=== PATIENT | male | born 1980 | race African-American/Black ===

== ENCOUNTER 2016-10-10 11:47 | Emergency (ER) | payer SELFPAY ==
--- NOTE | 2016-10-10 12:37 | ER Document Report ---
HPI - HPI Pain Level: 5 Notes: Patient is a 36-year-old female presents to the ED complaining of left upper tooth pain possible abscess 2 days. Patient states that he has had an abscess in this area before. He still eating and drink without any problems. He has not taken any [id number] meds for symptoms. He has not noticed any purulent discharge. Patient has had left facial swelling. Pain does not radiate. Denies any fever, headaches, URI, sore throat, dysphagia, chest pain, palpitations, cough, wheeze, shortness of breath, dyspnea, abdominal pain, nausea/vomiting/diarrhea, dysuria, rash. - ROS Notes: REVIEW OF SYSTEMS: CONSTITUTIONAL : Denies fever, chills, or sweats. Denies recent illness. EENT: Denies eye, ear, throat, or mouth pain or symptoms. Denies nasal or sinus congestion or discharge. Denies throat, tongue swelling or difficulty swallowing. See HPI. CARDIOVASCULAR: Denies chest pain. Denies palpitations or racing or irregular heart beat. Denies ankle edema. RESPIRATORY: Denies cough, cold, or chest congestion. Denies shortness of breath, difficulty breathing, or wheezing. GASTROINTESTINAL: Denies abdominal pain or distention. Denies nausea, vomiting , or diarrhea. Denies blood in vomitus, stools, or per rectum. Denies black, tarry stools. Denies constipation. GENITOURINARY: Denies difficulty urinating, painful urination, burning, frequency, blood in urine, or discharge. MUSCULOSKELETAL: Denies back or neck pain or stiffness. Denies joint pain or swelling. SKIN: Denies rash, lesions or sores. NEUROLOGICAL: Denies confusion or altered mental status. Denies passing out or loss of consciousness. Denies dizziness or lightheadedness. Denies headache. Denies weakness or paralysis or loss of use of either side. Denies problems with gait or speech. Denies sensory loss, numbness, or tingling. Denies seizures. ALL OTHER SYSTEMS REVIEWED AND NEGATIVE. Dictation was performed using [employer] recognition software - DERM Skin Color: Normal Past Medical History - Social History Smoking Status: Current Every Day Smoker Family History: Reviewed & Not Pertinent Patient has suicidal ideation: No Patient has homicidal ideation: No Renal/ Medical History: Denies: Hx Peritoneal Dialysis Vertical Provider Document - CONSTITUTIONAL Agree With Documented VS: Yes Notes: PHYSICAL EXAMINATION: GENERAL: Well-appearing, well-nourished and in no acute distress. HEAD: Atraumatic, normocephalic. EYES: Pupils equal round and reactive to light, extraocular movements intact, sclera anicteric, conjunctiva are normal. No entrapment. ENT: EAC clear b/l. TM's intact b/l without erythema, fluid, or perforation. Nares patent and without discharge. oropharynx clear without exudates. No tonsilar hypertrophy or erythema. Moist mucous membranes. No sinus tenderness. Mouth: Poort dentition. + left approx #12-13 inflammation/erythema/no d/c. + left sided facial swelling. No red streaks. + tenderness to palp of the molars/gums. NECK: Normal range of motion, supple without lymphadenopathy. No rigidity. LUNGS: Breath sounds clear to auscultation bilaterally and equal. No wheezes rales or rhonchi. HEART: Regular rate and rhythm without murmurs, rubs, gallops. Musculoskeletal: FROM to passive/active. Strength 5+/5. NEUROLOGICAL: Cranial nerves grossly intact. Normal speech, normal gait. Normal sensory, motor exams PSYCH: Normal mood, normal affect. SKIN: Warm, Dry, normal turgor, no rashes or lesions noted. - INFECTION CONTROL TRAVEL OUTSIDE OF THE [place] IN LAST 30 DAYS: No - RESPIRATORY O2 Sat by Pulse Oximetry: 97 Course - Re-evaluation Re-evalutation: 10/10/16 12:38 Patient is an afebrile, well-hydrated, 36-year-old male who presents the ED with suspected dental abscess. Vitals are stable. PE otherwise unremarkable aside from facial swelling in the inflammation in his gums tenderness. Reviewed with Dr. Mandujano that no CT scan of the face is warranted at this time. Good dental practice encouraged. Conservative measures for symptoms otherwise. Schedule for an appointment with the dentist. Recheck your PCM in 2-3 days. Return to the ED with any worsening/concerning symptoms otherwise as reviewed. Patient in agreement. - Vital Signs Vital signs: Temp Pulse Resp BP Pulse Ox 98.6 F 105 H 16 144/96 H 97 10/10/16 11:54 10/10/16 11:54 10/10/16 11:54 10/10/16 11:54 10/10/16 11:54 Discharge - Discharge Clinical Impression: Tooth ache, Dental abscess Condition: Stable Disposition: HOME, SELF-CARE Instructions: Abscess ([facility]), Toothache ([facility]), Clindamycin ([facility]) Additional Instructions: tylenol/Ibuprofen as needed Take antibiotic as directed Keep your mouth clean [place] your teeth and floss twice daily Schedule an appointment with a dentist Recheck with your PCM in 2-3 days Return to the ED with any worsening symptoms and/or development of fever, headache, chest pain, palpitations, syncope, shortness of breath, trouble breathing, abdominal pain, n/v/d, or other worsening symptoms that are concerning to you. Prescriptions: Clindamycin HCl [Cleocin 300 mg Capsule] 300 mg PO BID #20 capsule Forms: Elevated Blood Pressure
[2016-10-10 13:02] VITALS: BP 138/86
== END 2016-10-10 12:53 | disposition home or self-care (01) ==
LOC: ER 11:47
DX: K04.7 Periapical abscess without sinus (principal); K08.89 Other specified disorders of teeth and supporting structures; F17.200 Nicotine dependence, unspecified, uncomplicated
CPT/HCPCS: 99282